=== PATIENT | male | born 1990 | race Caucasian/White ===

== ENCOUNTER 2023-12-23 11:34 | Emergency (ER) | payer BC, SELFPAY ==
--- NOTE | ~2023-12-23 | CT_ITS ---
Non-contrast CT scan of the Abdomen and Pelvis Clinical indication: Right lower quadrant pain, hematuria Technique: 2.5 mm axial scans were obtained through the abdomen and pelvis without intravenous or or al contrast. Dose reduction technique was used on this scan by utilizing automated exposure control a nd iterative reconstruction technique. The dose-length product (DLP) was 1497.57 mGy-cm. Findings: Images through the lung bases reveal no abnormalities. There is a 5 mm mid to distal right ureteral stone, with mild right hydroureteronephrosis to this lev el. There are additional small bilateral nonobstructing renal stones. No left ureteral stone or left hydronephrosis. Diffuse hepatic steatosis noted. The spleen, pancreas, gallbladder, and adrenals appear normal. Ther e is no aortic aneurysm. There is no evidence of bowel obstruction. Images through the pelvis were performed. There is no evidence of ascites or lymphadenopathy. Urinary bladder unremarkable. No pelvic mass seen. Impression: 5 mm distal right ureteral stone with mild right hydronephrosis. Additional small bilateral nonobstructing renal stones. Diffuse hepatic steatosis. Reviewed, dictated and finalized at [facility]. Impression: 5 mm distal right ureteral stone with mild right hydronephrosis. Additional small bilateral nonobstructing renal stones. Diffuse hepatic steatosis.
[2023-12-23 11:36] VITALS: BP 145/95; PULSE 58; RESP 18; TEMP 36.4; O2SAT 100
[2023-12-23 12:13] LABS: Basophils Absolute Auto 0.1 K/mm3 (0.0-0.1); Basophils Percent Auto 1.1 % (0.2-1.2); Eosinophils Absolute Auto 0.2 K/mm3 (0-0.3); Eosinophils Percent Auto 1.5 % (0-4.4); Hemoglobin 15.5 g/dL (14.0-18.0); Immature Granulocyte Absolute 0.02 K/mm3 (0.00-0.031); Immature Granulocyte Percent A 0.2 % (0-0.5); Lymphocytes Absolute Auto 2.44 K/mm3 (0.9-3.2); Lymphocytes Percent Auto 24.5 % (18.3-44.2); Mean Corpuscular HGB Conc 33.7 g/dl (32-36); Mean Corpuscular Hemoglobin 28.5 pg (26-34); Mean Corpuscular Volume 84.7 fl (80-100); Mean Platelet Volume 10.8 fl (7.4-10.4); Monocytes Absolute Auto 0.8 K/mm3 (0.1-0.6); Monocytes Percent Auto 8.4 % (2.6-8.5); Neutrophils Absolute Auto 6.4 K/mm3 (1.3-6.7); Neutrophils Percent Auto 64.3 % (45.5-73.1); Platelet Count Result 256 k/mm3 (150-375); Red Blood Count 5.43 M/mm3 (4.6-6.20); Red Cell Distribution Width 12.8 % (11.5-14.5)
[2023-12-23] MEDS: HYDROmorphone HCL INJ (*CRX) 1 MG/ML SYR 0.5 MG IV PUSH (12:20)
[2023-12-23] MEDS: KETOROLAC 30 MG/ML VIAL (*BKC) IV PUSH (12:20)
[2023-12-23] MEDS: ONDANSETRON INJ 4 MG/2 ML VIAL IV PUSH (12:20)
[2023-12-23 12:22] LABS: Bacteria Urine None Seen /hpf; Need Manual Microscopic Reviewed; Non Pathogenic Casts 0-2; RBC Urine >100 /hpf (0-2); Squamous Epithelial Cell Urine None Seen /hpf (Few); WBC Urine 21-50 /hpf (0-3)
[2023-12-23 12:23] LABS: Alanine Aminotransferase 56 U/L (6-50); Albumin Level 4.6 g/dL (3.5-5.1); Alkaline Phosphatase 71 U/L (38-126); Anion Gap 10 mmol/L (4-12); Aspartate Amino Transferase 33 U/L (17-59); Bilirubin,Total 0.7 mg/dL (0.2-1.3); Blood Urea Nitrogen 14 mg/dL (9-20); Calcium 9.6 mg/dL (8.4-10.2); Carbon Dioxide 26 mmol/L (22-30); Chloride 102 mmol/L (98-107); Estimated CRCL calculation 126 ml/min; Estimated Glomerular Filt Rate > 60; Glucose 112 mg/dL (65-110); Potassium 4.2 mmol/L (3.4-5.0); Sodium 138 mmol/L (137-145)
[2023-12-23 12:23] LABS: Appearance Urine Turbid (Clear); Bilirubin Urine 1+ (Negative); Blood Urine 2+ (Negative); Color Urine Red (Yellow); Glucose Urine UA Negative (Negative); Ketones Urine Negative (Negative); Leukocyte Esterase Ur 2+ LEU/UL (Negative); Nitrate Urine Positive (Negative); Protein Urine 2+ mg/dL (Negative); Specific Grav Ur 1.024 (1.001-1.035); Urobilinogen Urine 0.2 mg/dL (<2.0)
[2023-12-23 12:24] LABS: Add Urine Microscopic? YES
--- NOTE | 2023-12-23 12:34 | ED.MALEGU ---
HPI - Male Genitourinary General Chief complaint: Urogenital-Male Stated complaint: R side kidney stone Time Seen by Provider: 12/23/23 11:59 History of Present Illness HPI Narrative: A 33-year-old male with a past medical history significant for nephrolithiasis who presents to the emergency room with chief complaint of sudden onset right lower quadrant pain. Patient states it feels exactly like his previous kidney stone. He states he was previously seen prescribe Flomax which did alleviate his kidney stone pain and allowed to pass without intervention. Patient is endorsing some subjective chills but no fevers at home. Was otherwise in his normal state of health. No injuries or trauma. Denies any abdominal surgery history. States his pain started radiating to his back and into his right testicle without any testicular pain or swelling. Some hematuria was noted when he went to the bathroom earlier today. Related Data Allergies Allergy/AdvReac Type Severity Reaction Status Date / Time No Known Allergies Allergy Verified 12/23/23 11:35 Review of Systems Review of Systems: As reviewed above in HPI Exam Narrative: GENERAL: [Well-appearing, well-nourished, and in no acute distress.] HEAD: [Normocephalic, atraumatic.] EYES: [PERRLA and EOMI.] ENT: Nares clear, no rhinorrhea or epistaxis. Mucous membranes moist. NECK: Supple. CHEST: [Clear to auscultation. No respiratory distress.] HEART: [Regular rate and rhythm]. No murmur heard. [Normal peripheral pulses.] ABDOMEN: [Soft, nondistended], minimal tenderness to the right lower quadrant, [No rigidity or guarding] EXTREMITIES: Normal range of motion. [No edema.] SKIN: Warm, dry, no rash. NEURO: [No focal deficits]. Alert and oriented [x3.] PSYCH: [Normal mood and affect.] Course Vital Signs Vital signs: Vital Signs Temperature 36.4 C L 12/23/23 11:36 Pulse Rate 58 L 12/23/23 11:36 Respiratory Rate 18 12/23/23 11:36 Blood Pressure 145/95 H 12/23/23 11:36 Pulse Oximetry 100 12/23/23 11:36 Oxygen Delivery Room Air 12/23/23 11:36 Temperature 36.8 C 12/23/23 13:04 Pulse Rate 49 L 12/23/23 13:04 Respiratory Rate 18 12/23/23 13:04 Blood Pressure 138/82 12/23/23 13:04 Pulse Oximetry 100 12/23/23 13:04 Oxygen Delivery Room Air 12/23/23 11:36 MDM - Male Genitourinary MDM Narrative Medical decision making narrative: This is a 33-year-old male with history of nephrolithiasis who presents with right lower quadrant pain he states is unlike his previous kidney stone pain. He has a soft nondistended abdomen with reassuring vital signs. He is afebrile but subjective chills. His pain radiates into his right groin without any testicular pain or swelling according to himself. No trauma. Differential diagnosis includes nephrolithiasis, obstructing stone, infected stone, less likely other intra-abdominal process such as pancreatitis versus appendicitis given his historical features and reassuring exam. CBC, CMP, urinalysis and CT abdomen pelvis with IV contrast was obtained. He was given Dilaudid, Toradol, fluids and Zofran. Patient CBC showed no leukocytosis or anemia. Normal renal function panel, normal electrolyte panel. Patient's urinalysis does show nitrates, leukocyte Estrace red and white blood cells indicative of a distal urinary tract infection. Patient's CT abdomen pelvis was independently reviewed by myself and also interpreted by radiology. There appears to be 5 mm distal ureteral stone with mild hydro with some bilateral nonobstructing stones. I went and re-evaluated the patient who had complete symptomatic resolution at this time. I informed him of his right-sided kidney stone as well as urinary tract infection without pyelonephritis Given his age and risk factors and low likelihood of progression for urosepsis we did have a gilberto discussion on IV versus oral antibiotics and outpatient follow-up versus admission. Given that
[2023-12-23] MEDS: LACTATED RINGERS 1,000 ML 999 ML IV CONT (13:02)
[2023-12-23 13:04] VITALS: BP 138/82; PULSE 49; RESP 18; TEMP 36.8; O2SAT 100
[2023-12-23 14:10] VITALS: BP 133/85; PULSE 75; RESP 18; TEMP 36.7; O2SAT 97
== END 2023-12-23 14:12 | disposition home or self-care (01) ==
PROVIDERS: Emergency Medicine; Emergency Provider Student in an Organized Health Care Education/Training Program
DX: N13.2 Hydronephrosis with renal and ureteral calculous obstruction (principal); N39.0 Urinary tract infection, site not specified; Z87.442 Personal history of urinary calculi
CPT/HCPCS: 36415; 74176; 80053; 81001; 85025; 87086; 96365; 96375; 99284; J0696; J1170; J1885; J2405; J7120